=== PATIENT | female | born 1995 | race Caucasian/White ===

== ENCOUNTER 2021-05-18 20:29 | Emergency (ER) | payer SELFPAY ==
[~2021-05-18] VITALS: Ht 160 cm; Wt 63.0 kg
[2021-05-18 20:58] VITALS: BP 122/75
== END 2021-05-19 03:00 | disposition left against medical advice (07) ==
LOC: ER 20:29
DX: Z53.21 Procedure and treatment not carried out due to patient leaving prior to being seen by health care provider (principal)